=== PATIENT | female | born 1985 | race Caucasian/White ===

== ENCOUNTER 2025-02-03 13:01 | Emergency (ER) | payer OTHER ==
[2025-02-03] MEDS ORDERED: HYDROCODONE/APAP 7.5/325 MG TAB ONE (14:16)
[2025-02-03] MEDS ORDERED: ONDANSETRON 4 MG (ODT) TAB ONE (14:16)
--- NOTE | 2025-02-03 14:45 | RAD REPORT ---
Extremity [facility] CLINICAL INDICATION: Female, 40 years old.Pain;Swelling TECHNIQUE: Complete duplex sonography of the lower extremity veins was performed of the affected limb . The examination included compression for vein patency, color Doppler imaging and flow augmentation in response to distal compression of the distal external iliac, common femoral, femoral, popliteal, peroneal, tibial and great saphenous veins. [id number]. COMPARISON: No prior exams FINDINGS: Duplex sonography imaging demonstrates all deep veins examined to be fully compressible with spontane ous, phasic and augmented flow in the affected limb. Dilated and thrombosed superficial varicose veins along the inner thigh and calf of the left lower ex tremity. IMPRESSION: No evidence of deep venous thrombosis in the left lower extremity. Thrombosed superficial varicose veins along the left inner thigh and calf.
--- NOTE | 2025-02-03 15:25 | ER ---
Nurse's Notes [facility] Name: Aleisha Keith Age: 40 yrs Sex: Female : 1985 Arrival Date: 02/03/2025 Time: 13:01 Bed 7 Private MD: Diagnosis: Thrombosed superficial varicose vein, left leg Presentation: 02/03 13:06 Chief complaint: Patient states: started having flu like symptoms on Friday, tested me1 positive for covid yesterday. This morning patient started having L medial thigh pain that is worse now, 7/10 "tightness", Inner thigh is warm to touch and painful. Coronavirus screen: Vaccine status: Patient reports receiving the 2nd dose of the covid vaccine. Ebola Screen: No symptoms or risks identified at this time. Initial Sepsis Screen: Does the patient meet any 2 criteria? No. Patient's initial sepsis screen is negative. Does the patient have a suspected source of infection? No. Patient's initial sepsis screen is negative. Risk Assessment: Do you want to hurt yourself or someone else? Patient reports no desire to harm self or others. Onset of symptoms was January 30, 2025. 13:06 Method Of Arrival: Ambulatory nd1 13:06 Acuity: BRYAN 3 me1 Triage Assessment: 13:10 General: Appears uncomfortable, ill, well groomed, well developed, well nourished, me1 Behavior is calm, cooperative, appropriate for age. Pain: Complains of pain in medial aspect of left thigh Pain does not radiate. Pain currently is 7 out of 10 on a pain scale. Quality of pain is described as tight Pain began gradually, Is continuous. EENT: Reports nasal congestion since Friday. Neuro: Level of Consciousness is awake, alert, obeys commands, Oriented to person, place, time, situation, Appropriate for age. Cardiovascular: Patient's skin is warm and dry. Respiratory: Reports cough that is persistent Airway is patent Respiratory effort is even, unlabored, Respiratory pattern is regular, symmetrical. GI: No signs and/or symptoms were reported involving the gastrointestinal system. : No signs and/or symptoms were reported regarding the genitourinary system. Derm: Skin is healthy with good turgor, Skin is normal, red, warm area to left medial thigh since early this morning. Pain 7/10 "tightness". Musculoskeletal: Reports pain in medial aspect of left thigh. 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 - Infectious Disease History:: Denies. - Social history:: Smoking status: Patient denies any tobacco usage or history of. Screenin:45 [facility] ED Fall Risk Assessment (Adult) History of falling in the last 3 months, db including since admission No falls in past 3 months (0 pts) Confusion or Disorientation No (0 pts) Intoxicated or Sedated No (0 pts) Impaired Gait No (0 pts) Mobility Assist Device Used No (0 pt) Altered Elimination No (0 pt) Score/Fall Risk Level 0 - 2 = Low Risk Oriented to surroundings, Maintained a safe environment. Abuse screen: Denies threats or abuse. Denies injuries from another. Nutritional screening: No deficits noted. Tuberculosis screening: No symptoms or risk factors identified. Assessment: 15:15 Reassessment: Patient appears in no apparent distress at this time. Patient and/or db family updated on plan of care and expected duration. Pain level reassessed. Patient is alert, oriented x 3, equal unlabored respirations, skin warm/dry/pink. PT AMBULATORY TO ROOM. 15:17 General: Appears in no apparent distress. comfortable, Behavior is calm, cooperative. db Neuro: Level of Consciousness is awake, alert, obeys commands, Oriented to person, place, time, situation. Respiratory: Airway is patent Respiratory effort is even, unlabored, Respiratory pattern is regular, symmetrical. Vital Signs: 13:06 BP 163 / 100; Pulse 64; Resp 18; Temp 98.5; Pulse Ox 100% ; Weight 89.81 kg; Height 5 me1 ft. 4 in. ; Pain 7/10; 15:44 BP 158 / 92; Pulse 66; Resp 18; Pulse Ox 100% ; db 13:06 Body Mass Index 33.99 (89.81 kg, 162.56 cm) nd1 13:06 Pain Scale: Adult [facility] ED Course: 13:03 Patient arrived in ED. mr 13:09 Aury Sherwood PA-C is PHCP. sb4 13:09 Juan Carranza MD is Attending Physician. sb4 13:10 Triage completed. me1 13:10 Arm band placed on Patient placed in waiting room. me1 14:05 Extremity [facility] US In Process Unspecified. EDMS 15:15 Danette Maldonado, RN is Primary Nurse. db 15:45 Patient has correct armband on for positive identification. Bed in low position. Call db light in reach. Side rails up X 1. Provided Education on: DISCHARGE AND FOLLOWUP . Pulse ox on. NIBP on. 15:45 No provider procedures requiring assistance completed. Patient did not have IV access db during this emergency room visit. Administered Medications: 14:26 Drug: Hydrocodone-Acetaminophen PO (7.5 mg-325 mg) 1 tabs PO once Route: PO; me1 15:46 Follow up: Response: No adverse reaction db 14:26 Drug: Ondansetron PO 4 mg PO once Route: PO; me1 15:46 Follow up: Response: No adverse reaction db Medication: 15:46 VIS not applicable for this client. db Outcome: 15:24 Discharge ordered by MD. sb4 15:45 Discharged to home ambulatory, with family, db 15:45 Condition: stable 15:45 Discharge instructions given to patient, family, Instructed on discharge instructions, follow up and referral plans. Prescriptions given X 2, 15:47 Patient left the ED. db Signatures: Dispatcher [employer] EDMD Silvia Shepard, Reg Reg mr Danette Maldonado, RN RN db Aury Sherwood PA-C PA-C sb4 Jennifer Mayberry, MORTEZA RN me1 Corrections: (The following items were deleted from the chart) 15:17 15:15 Reassessment: Patient appears in no apparent distress at this time. Patient db and/or family updated on plan of care and expected duration. Pain level reassessed. Patient is alert, oriented x 3, equal unlabored respirations, skin warm/dry/pink. PT AMBULATORY TO RESTROOM db
--- NOTE | 2025-02-03 15:25 | EDPHYS ---
Physician Documentation [facility] Name: Aleisha Keith Age: 40 yrs Sex: Female : 1985 Arrival Date: 02/03/2025 Time: 13:01 Bed 7 Private MD: DOMINIQUE Physician Juan Carranza HPI: 02/03 13:23 This 40 yrs old Female presents to ER via Ambulatory with complaints of Covid+, Leg sb4 Pain. 13:23 Patient states that she started feeling poorly this weekend, tested positive for COVID sb4 yesterday. Woke up today with pain in left medial thigh with associated swelling and warmth. She is concerned about having a DVT. Denies any chest pain or shortness of breath. Denies any history of DVTs.. 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 - Infectious Disease History:: Denies. - Social history:: Smoking status: Patient denies any tobacco usage or history of. ROS: 13:24 Constitutional: Negative for fever, chills, and weight loss, sb4 13:24 MS/extremity: Positive for erythema, pain, swelling, tenderness, of the medial aspect of left thigh, 13:24 All other systems are negative, Exam: 15:57 Head/Face: Normocephalic, atraumatic. Eyes: Extra-ocular motions intact. Periorbital sb4 areas with no swelling, redness, or edema. ENT: Mucous membranes moist. Respiratory: No increased work of breathing, no retractions or nasal flaring. Skin: Warm, dry with normal turgor. Normal color with no rashes, no lesions, and no evidence of cellulitis. 15:57 Constitutional: The patient appears alert, awake, uncomfortable, 15:57 Musculoskeletal/extremity: Prominent varicose veins on the left medial leg. No erythema or swelling. Tenderness to the touch and warmth. Vital Signs: 13:06 BP 163 / 100; Pulse 64; Resp 18; Temp 98.5; Pulse Ox 100% ; Weight 89.81 kg; Height 5 me1 ft. 4 in. ; Pain 7/10; 15:44 BP 158 / 92; Pulse 66; Resp 18; Pulse Ox 100% ; db 13:06 Body Mass Index 33.99 (89.81 kg, 162.56 cm) me1 13:06 Pain Scale: Adult me1 MDM: 13:09 Medical Screening Exam initiated sb4 15:57 Differential diagnosis: SVT, DVT, cellulitis. Data reviewed: vital signs, nurses notes, sb4 radiologic studies, and as a result, I will discharge patient. Counseling: I had a detailed discussion with the patient and/or guardian regarding the historical points, exam findings, and any diagnostic results supporting the discharge/admit diagnosis, radiology results, the need for outpatient follow up, for definitive care, to return to the emergency department if symptoms worsen or persist or if there are any questions or concerns that arise at home. ED course: Discussed ultrasound findings with patient, that it is a superficial vein thrombosis and treatment is symptomatic and there is no need for anticoagulation at this time. She understands and will follow-up with a vein specialist is in agreement with the plan of care. Will eventually follow-up with the vein specialist regarding her varicose veins. 02/03 13:13 Order name: Extremity [facility] ; Complete Time: 14:46 sb4 02/03 14:57 Order name: Kirk patient; Complete Time: 15:15 sb4 Administered Medications: 14:26 Drug: Hydrocodone-Acetaminophen PO (7.5 mg-325 mg) 1 tabs PO once Route: PO; me1 15:46 Follow up: Response: No adverse reaction db 14:26 Drug: Ondansetron PO 4 mg PO once Route: PO; me1 15:46 Follow up: Response: No adverse reaction db Disposition: 02/04 09:06 Co-signature as Attending Physician, Juan Carranza MD I agree with the assessment and bhargav plan of care. Disposition Summary: 02/03/25 15:24 Discharge Ordered Notes: Location: Home sb4 Problem: new sb4 Symptoms: have improved sb4 Condition: Stable sb4 Diagnosis - Thrombosed superficial varicose vein, left leg sb4 Followup: sb4 - With: Emergency Department - When: As needed - Reason: Trouble breathing, Worsening of condition Discharge Instructions: - Discharge Summary Sheet sb4 - Varicose Veins sb4 Forms: - Patient Portal Instructions sb4 - Leadership Thank You Letter sb4 Prescriptions: - Diclofenac Sodium 75 mg Oral Tablet Sustained Release - take 1 tablet ORAL route 2 times per day; 30 tablet; Refills: 0, Product sb4 Selection Permitted - Tramadol 50 mg Oral Tablet - take 1 tablet ORAL route every 8 hours as needed; 12 tablet; Refills: 0, sb4 Product Selection Permitted Signatures: Dispatcher [employer] EDJuan Toure MD MD cha Brown, Sophia, PA-C PA-C sb4 Jennifer Mayberry, RN RN me1 Danette Maldonado RN db Corrections: (The following items were deleted from the chart) 02/03 13:24 13:23 Patient states that she started feeling poorly this weekend, tested positive for sb4 COVID yesterday.. sb4 : 13:23 Patient states that she started feeling poorly this weekend, tested positive for sb4 COVID yesterday. Woke up today with pain in left medial thigh. sb4
[2025-02-03 17:13] VITALS: TEMP 98.5; O2SAT 100
[2025-02-03 17:15] VITALS: BP 158/92
== END 2025-02-03 15:47 | disposition home or self-care (01) ==
LOC: ER 13:01
DX: I82.812 Embolism and thrombosis of superficial veins of left lower extremity (principal); I10 Essential (primary) hypertension
CPT/HCPCS: 93971; 99283; Q0162